=== PATIENT | male | born 1950 | race Caucasian/White ===

== ENCOUNTER → 2016-05-28 | Outpatient (CLI) | payer BC, OTHER ==
--- NOTE | 2016-05-28 09:55 | US ---
EXAM DESCRIPTION: Renal CLINICAL HISTORY: 66 years Male, COMPLEX LEFT RENAL CYST COMPARISON: September 12, 2012. TECHNIQUE: Grayscale imaging of bilateral kidneys was performed. FINDINGS: The right kidney measures 11.7 cm in diameter and the left measures 12.7. No evidence of solid mass. No evidence of renal stone or obstruction. There are two Bosniak 2F cyst seen within left kidney and a single right simple renal cyst noted. The two septated cysts within the left kidney have demonstrated interval increase in size. The largest measures 6 cm in diameter on today's exam and on the prior study and measured 5.2 cm in diameter. The exophytic left lower pole renal cyst seen on the prior study is no longer visualized on today's study. IMPRESSION: Bilateral renal cysts noted. The two within the left kidney are complex and compatible with Bosniak 2F cysts. These have demonstrated slight interval increase in size of the course of four years, on the order of a few millimeters. No evidence of renal stone or obstruction. Electronically signed by: Pete Hernandez MD 05/28/2016 9:54 AM [employer]
== END | disposition home or self-care (01) ==
LOC: US 08:18
PROVIDERS: ATTEND Urology
DX: N28.1 Cyst of kidney, acquired (principal)

== ENCOUNTER → 2016-06-09 | Outpatient (CLI) | payer BC | END | disposition home or self-care (01) | LOC: LAB.O 14:34 | PROVIDERS: ATTEND Urology | DX: R97.20 Elevated prostate specific antigen [PSA] (principal) ==

== ENCOUNTER → 2016-10-22 | Outpatient (CLI) | payer BC | END | disposition home or self-care (01) | LOC: GMA 10:12 | PROVIDERS: ATTEND Nurse Practitioner Family | DX: R53.81 Other malaise (principal) ==

== ENCOUNTER 2017-04-11 19:14 | Emergency (ER) | payer BC, MEDICARE ==
[2017-04-11] MEDS ORDERED: SODIUM CHLORIDE 0.9% 1000ML 1,000 ML IVS ONE (19:37)
[2017-04-11] MEDS ORDERED: IBUPROFEN 200 MG TAB PO ONE (19:38)
--- NOTE | 2017-04-11 20:09 | RAD ---
PROCEDURE: XR CHEST 1 VIEW HISTORY: confusion fever COMPARISON: TECHNIQUE: Single projection of the chest was done. 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 There are no discrete airspace infiltrates, pneumothoraces or pleural effusions. The pulmonary vascularity is normal. The cardiomediastinal silhouette is stable. IMPRESSION: There is no acute pleural-parenchymal process seen in the imaged lung ramey. Location of Interpretation: Teleradiology Electronically signed by: Lukas Lorenzo MD 04/11/2017 8:08 PM [facility] Workstation: [id number]
[2017-04-11] MEDS ORDERED: cefTRIAXone SODIUM 1 GM VIAL IM ONE (21:46)
[2017-04-11] MEDS ORDERED: ONDANSETRON ODT 8 MG TAB SL ONE (21:46)
[2017-04-11] MEDS ORDERED: CIPROFLOXACIN 500 MG TAB PO ONE (21:46)
[2017-04-11 21:48] VITALS: TEMP 101.1
[2017-04-11] MEDS ORDERED: ACETAMINOPHEN 325 MG TAB PO ONE (21:50)
--- NOTE | 2017-04-11 21:52 | ED.PDOC ---
History of Present Illness - General Chief Complaint: Fever Stated Complaint: N/V/D, Fever Time Seen by Provider: 04/11/17 19:26 Source: patient Exam Limitations: no limitations - History of Present Illness Initial Comments: the patient is 67-year-old male presenting to the emergency room secondary to 4-5 days of symptoms. Symptoms primarily started out with nausea vomiting and diarrhea which have been intermittent over that time. Today the patient has slept most of the day and was having a difficult time getting out his thoughts. He was not having slurring of speech. He was not having any were jumbled. No difficulty with moving his extremities. No syncope. He has felt shaky on his feet when getting up. He is not having any localized abdominal pain. There was no blood or bile in the vomitus. He has not had any bloody or melanotic stools. Family and he did not realize that he was having any fevers until he got here so he has not been getting any Motrin or Tylenol. By the time the patient arrived here he is speaking essentially normally. He knows where he has twice here and the date. He is able to give relative personal information to his . He is a good historian. No headache or nuchal rigidity. Timing/Duration: unsure Severity: moderate Improving Factors: nothing Worsening Factors: nothing Associated Symptoms: malaise, nausea/vomiting, weakness Allergies/Adverse Reactions: Allergies NO KNOWN ALLERGY Allergy (Verified 04/11/17 19:33) Home Medications: Ambulatory Orders Aspirin [Aspirin Low Strength] 2 tablet DAILY 04/11/17 Ciprofloxacin [Cipro] 500 mg PO BID #14 tab 04/11/17 Crestor 04/11/17 Metronidazole 500 mg PO TID #20 tab 04/11/17 Review of Systems - Review of Systems Constitutional: States: fever, malaise EENTM: States: no symptoms reported Respiratory: States: no symptoms reported Cardiology: States: no symptoms reported Gastrointestinal/Abdominal: States: diarrhea, nausea, vomiting Genitourinary: States: no symptoms reported Musculoskeletal: States: no symptoms reported Skin: States: no symptoms reported Neurological: States: see HPI Endocrine: States: no symptoms reported All other Systems: No Change from Baseline Past Medical History (General) - Patient Medical History Hx Seizures: No Hx Stroke: No Hx Dementia: No Hx Asthma: No Hx of COPD: No Hx Cardiac Disorders: Yes - open heart surgery 11 years ago Hx Congestive Heart Failure: No Hx Pacemaker: No Hx Hypertension: No Hx Thyroid Disease: No Hx Diabetes: No Hx Gastroesophageal Reflux: No Hx Renal Disease: No Hx Cancer: No Hx of HIV: No Hx Hepatitis C: No Hx MRSA: No Surgical History: other - Vaccination History Hx Tetanus, Diphtheria Vaccination: No Hx Influenza Vaccination: No Hx Pneumococcal Vaccination: No - Social History Hx Tobacco Use: Yes Hx Chewing Tobacco Use: Yes Hx Alcohol Use: No Hx Substance Use: No Hx Substance Use Treatment: No Hx Depression: No Family Medical History - Family History Mother Family History: No Known Physical Exam - Physical Exam General Appearance: Alert, Comfortable, No apparent distress Eye Exam: bilateral normal Ears, Nose, Throat: hearing grossly normal, normal ENT inspection, normal pharynx Neck: full range of motion, supple, other - no nuchal rigidity Respiratory: lungs clear, normal breath sounds, no respiratory distress, no accessory muscle use Cardiovascular/Chest: normal peripheral pulses, no edema, tachycardia - ormal sinus rhythm part of the time but does get tachycardic mildly intermittently Peripheral Pulses: radial,left: 2+, dorsalis pedis,right: 2+, dorsalis pedis, left: 2+ Gastrointestinal/Abdominal: normal bowel sounds, non tender, soft Rectal Exam: deferred Back Exam: normal inspection, no CVA tenderness, no vertebral tenderness Extremity: normal range of motion, non-tender, normal inspection, no pedal edema , normal capillary refill, other - 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 Neurologic: shift boss II-XII nml as tested, no motor/sensory deficits, alert, normal mood/affect, oriented x 3 Skin Exam: normal color Comments: Vital Signs - 24 hr 04/11/17 04/11/17 04/11/17 19:20 20:15 21:15 Temperature 101.7 F H 101.1 F H Pulse Rate [ 114 H 103 H 91 H monitor] Respiratory 20 23 20 Rate Blood Pressure 121/84 124/81 97/68 [Left Arm] O2 Sat by Pulse 96 97 Oximetry Progress - Progress Progress: 04/11/17 21:54 the patient is a 67-year-old male presenting to the emergency room after approximately 4 days of gastrointestinal symptoms followed by some very mild altered mental status today. The patient was significantly dehydrated and did receive a liter of IV fluids. He is also receiving Motrin and Tylenol help control the fever. He has tested negative for the flu. Blood work appears largely normal. Urinalysis appears normal except for dehydration. Chest x-ray appears reassuring. The patient needs to be kept well hydrated. He will be written for Zofran in case of any further nausea and vomiting. I would like him to take omeprazole [id number] twice daily for the next month to help reduce any gastritis symptoms which may be worsened by the antibiotics. The patient is going to be placed on ciprofloxacin and metronidazole for the next 7 days for the treatment of any bacterial gastroenteritis or diverticulitis that may be triggering the symptoms. He does need to take these medications with food and he does need to avoid his cholesterol medication with these medicines. He should follow-up with his primary care doctor within the next 2 days for reevaluation. He should return here to the emergency room for any acute worsening. Symptoms at this time do not appear to be consistent with stroke or meningitis. If symptoms however should change, then additional workup may be warranted. - Results/Orders Results/Orders: chest x-ray shows no evidence of any pneumonia. 04/11/17 19:42 BLOOD CULTURE Stat Laboratory Results - last 24 hr 04/11/17 04/11/17 04/11/17 19:40 19:42 19:42 WBC 9.6 RBC 5.59 Hgb 16.4 Hct 48.8 MCV 87.3 MCH 29.4 MCHC 33.6 RDW 13.8 Plt Count 238 MPV 8.7 Absolute Neuts (auto) 8.50 H Absolute Lymphs (auto) 0.50 L Absolute Monos (auto) 0.40 Absolute Eos (auto) 0.10 Absolute Basos (auto) 0.00 Neutrophils % 89.1 H Lymphocytes % 5.1 L Monocytes % 4.2 Eosinophils % 1.4 Basophils % 0.2 D-Dimer, Quantitative Sodium 136 Potassium 4.0 Chloride 107 Carbon Dioxide 20 L Anion Gap 13.0 BUN 23 H Creatinine 1.15 BUN/Creatinine Ratio 20.0 Random Glucose 128 H Serum Osmolality 277.3 Calcium 8.9 Magnesium 1.8 Total Bilirubin 1.4 H AST 17 ALT 14 Alkaline Phosphatase 46 Creatine Kinase 45 CK-MB (CK-2) 1.2 CK-MB (CK-2) % Not Reportable Troponin I < 0.02 B-Natriuretic Peptide 50.1 Serum Total Protein 6.9 Albumin 3.7 Globulin 3.2 Albumin/Globulin Ratio 1.2 Amylase 54 Lipase 19 L TSH 0.87 Urine Color Yellow Urine Appearance Clear Urine pH 5.5 Ur Specific [place] >= 1.030 Urine Protein Trace Urine Glucose (UA) Negative Urine Ketones Negative Urine Blood Negative Urine Nitrite Negative Urine Bilirubin Negative Urine Urobilinogen 0.2 Ur Leukocyte Esterase Negative Urine RBC 1-3 Urine WBC 0-1 Ur Epithelial Cells 0 Urine Bacteria 0 Urine Mucus Small 04/11/17 19:42 WBC RBC Hgb Hct MCV MCH MCHC RDW Plt Count MPV Absolute Neuts (auto) Absolute Lymphs (auto) Absolute Monos (auto) Absolute Eos (auto) Absolute Basos (auto) Neutrophils % Lymphocytes % Monocytes % Eosinophils % Basophils % D-Dimer, Quantitative 248 H* Sodium Potassium Chloride Carbon Dioxide Anion Gap BUN Creatinine BUN/Creatinine Ratio Random Glucose Serum Osmolality Calcium Magnesium Total Bilirubin AST ALT Alkaline Phosphatase Creatine Kinase CK-MB (CK-2) CK-MB (CK-2) % Troponin I B-Natriuretic Peptide Serum Total Protein Albumin Globulin Albumin/Globulin Ratio Amylase Lipase TSH Urine Color Urine Appearance Urine pH Ur Specific [place] Urine Protein Urine Glucose (UA) Urine Ketones Urine Blood Urine Nitrite Urine Bilirubin Urine Urobilinogen Ur Leukocyte Esterase Urine RBC Urine WBC Ur Epithelial Cells Urine Bacteria Urine Mucus apid flu test was negative. - EKG/XRAY/CT CT Ordered: No Departure - Departure Clinical Impression: Gastroenteritis, Dehydration Altered mental status Qualifiers: Altered mental status type: unspecified Qualified Code(s): R41.82 - Altered mental status, unspecified Disposition: Discharge to Home or Self Care Condition: Fair Departure Forms: ED Discharge - Pt. Copy, Patient Portal Self Enrollment Instructions: DI for Bacterial Gastroenteritis -- Adult Diet: bland diet Activity: increase activity as tolerated Referrals: Bryon Vidal MD [Primary Care Provider] - 1-2 Days Prescriptions: Ciprofloxacin [Cipro] 500 mg PO BID #14 tab Metronidazole 500 mg PO TID #20 tab Home Medications: Ambulatory Orders Aspirin [Aspirin Low Strength] 2 tablet DAILY 04/11/17 Ciprofloxacin [Cipro] 500 mg PO BID #14 tab 04/11/17 Crestor 04/11/17 Metronidazole 500 mg PO TID #20 tab 04/11/17 Additional Instructions: the patient is a 67-year-old male presenting to the emergency room after approximately 4 days of gastrointestinal symptoms followed by some very mild altered mental status today. The patient was significantly dehydrated and did receive a liter of IV fluids. He is also receiving Motrin and Tylenol help control the fever. He has tested negative for the flu. Blood work appears largely normal. Urinalysis appears normal except for dehydration. Chest x-ray appears reassuring. The patient needs to be kept well hydrated. He will be written for Zofran in case of any further nausea and vomiting. I would like him to take omeprazole [id number] twice daily for the next month to help reduce any gastritis symptoms which may be worsened by the antibiotics. The patient is going to be placed on ciprofloxacin and metronidazole for the next 7 days for the treatment of any bacterial gastroenteritis or diverticulitis that may be triggering the symptoms. He does need to take these medications with food and he does need to avoid his cholesterol medication with these medicines. He should follow-up with his primary care doctor within the next 2 days for reevaluation. He should return here to the emergency room for any acute worsening. Symptoms at this time do not appear to be consistent with stroke or meningitis. If symptoms however should change, then additional workup may be warranted.
[2017-04-11] MEDS ORDERED: LIDOCAINE 1% 10 ML VIAL INJ ONE (21:53)
[2017-04-11 22:28] VITALS: BP 104/72; O2SAT 98
== END 2017-04-11 22:30 | disposition home or self-care (01) ==
LOC: ER 19:14
DX: K52.9 Noninfective gastroenteritis and colitis, unspecified (principal); E86.0 Dehydration; R41.82 Altered mental status, unspecified
CPT/HCPCS: 36415; 71045; 80053; 81001; 82150; 82550; 82553; 83690; 83735; 83880; 84443; 84484; 85025; 85379; 87040; 87502; J0696; J7030

== ENCOUNTER 2018-04-10 05:12 | Day surgery (SDC) | payer BC, MEDICARE ==
[2018-04-10] MEDS ORDERED: PROPARACAINE 0.5% OPHTH SOL 15 ML BTTL ONE (08:41)
[2018-04-10] MEDS ORDERED: TROP 1%/CYCLOPEN 1%/PHENYL 2% DROPS ONE (08:42)
[2018-04-10] MEDS ORDERED: PROPARACAINE 0.5% OPHTH SOL 15 ML BTTL RIGHT_EYE ONE (10:55)
[2018-04-10] MEDS ORDERED: MIDAZOLAM INJ 2 MG/2 ML VIAL ONE (10:55)
[2018-04-10] MEDS ORDERED: TOBRAMYCIN SULF 0.3 % OPHT SOL 1 DROP RIGHT_EYE ONE ×2 (11:03→11:18)
[2018-04-10] MEDS ORDERED: LIDOCAINE 1% 2 ML VIAL INJ ONE (11:03)
[2018-04-10] MEDS ORDERED: DEXAMETHASONE 0.1% OPHTH SOL 1 DROP RIGHT_EYE ONE ×2 (11:03→11:18)
[2018-04-10] MEDS ORDERED: BRIMONIDINE 0.2% OPHTH DROPS RIGHT_EYE ONE ×2 (11:04→11:18)
== END 2018-04-10 12:15 | disposition home or self-care (01) ==
LOC: AMB 05:12
PROVIDERS: ATTEND Ophthalmology
DX: H25.11 Age-related nuclear cataract, right eye (principal); F17.220 Nicotine dependence, chewing tobacco, uncomplicated; Z79.82 Long term (current) use of aspirin; Z79.899 Other long term (current) drug therapy
CPT/HCPCS: 00142; 66984; J2250

== ENCOUNTER 2018-04-24 05:32 | Day surgery (SDC) | payer BC, MEDICARE ==
[2018-04-24] MEDS ORDERED: MOXIFLOXACIN HCL (OPHTH) 1 DROP DROPS ONE (08:19)
[2018-04-24] MEDS ORDERED: PROPARACAINE 0.5% OPHTH SOL 15 ML BTTL ONE (08:19)
[2018-04-24] MEDS ORDERED: TROP 1%/CYCLOPEN 1%/PHENYL 2% DROPS ONE (08:19)
[2018-04-24] MEDS ORDERED: MIDAZOLAM INJ 2 MG/2 ML VIAL ONE (08:28)
[2018-04-24] MEDS ORDERED: LIDOCAINE 1% MPF 5 ML VIAL INJ ONE (10:00)
[2018-04-24] MEDS ORDERED: TOBRAMYCIN SULF 0.3 % OPHT SOL 1 DROP LEFT_EYE ONE ×2 (10:00→10:14)
[2018-04-24] MEDS ORDERED: DEXAMETHASONE 0.1% OPHTH SOL 1 DROP LEFT_EYE ONE ×2 (10:00→10:14)
[2018-04-24] MEDS ORDERED: MOXIFLOXACIN HCL (OPHTH) 1 DROP DROPS LEFT_EYE ONE ×2 (10:00→10:14)
[2018-04-24] MEDS ORDERED: BRIMONIDINE 0.2% OPHTH DROPS LEFT_EYE ONE ×2 (10:01→10:14)
== END 2018-04-24 10:55 | disposition home or self-care (01) ==
LOC: AMB 05:32
PROVIDERS: ATTEND Ophthalmology
DX: H25.11 Age-related nuclear cataract, right eye (principal); I10 Essential (primary) hypertension
CPT/HCPCS: 00142; 66984; J2250

== ENCOUNTER → 2018-05-11 | Outpatient (CLI) | payer BC, MEDICARE | LOC: GMAM 10:17 | PROVIDERS: ATTEND Family Medicine | DX: Z12.5 Encounter for screening for malignant neoplasm of prostate (principal) ==

== ENCOUNTER → 2018-06-02 | Outpatient (CLI) | payer MEDICARE, BC ==
--- NOTE | 2018-06-02 15:17 | US ---
EXAM DESCRIPTION: Testicular: Ultrasound. CLINICAL HISTORY: 68 years Male SWELLING OF TESTICLE COMPARISON: None. TECHNIQUE: Transcutaneous scanning ; two-dimensional and Doppler modes. FINDINGS: Dimensions of the right testicle are 4.1 x 3.1 x 2.3 cm, with normal echogenicity and normal color Doppler flow. Epididymal head measures 9.0 x 8.7 x 6.3 mm, with 4 x 4 mm cyst. Otherwise normal echogenicity and normal color Doppler flow. Varicocele posterior to testicle present. No scrotal wall thickening. No Hydrocele. Dimensions of the left testicle are 4.5 x 3.1 x 2.3 cm, with normal echogenicity and normal color Doppler flow. Epididymal head measures 7 x 7 x 5 mm, with normal echogenicity and normal color Doppler flow. Varicocele posterior to the testicle, larger than on the right. No scrotal wall thickening. No Hydrocele. IMPRESSION: 1. Bilateral varicoceles larger on the left than right. No scrotal wall thickening or hydroceles. 2. 4 mm right epididymal cyst. Otherwise unremarkable. Negative findings bilateral testicles and left epididymis. Electronically signed by: Sohail Li MD 06/02/2018 3:13 PM MANAGEMENT DEPARTMENT CHAIR
== END ==
LOC: US 09:07
PROVIDERS: ATTEND Family Medicine
DX: I86.1 Scrotal varices (principal); N50.3 Cyst of epididymis

== ENCOUNTER 2018-12-12 17:53 | Emergency (ER) | payer BC, MEDICARE, OTHER ==
[2018-12-12 18:10] VITALS: TEMP 98.3
--- NOTE | 2018-12-12 18:26 | ED.PDOC ---
History of Present Illness - General Chief Complaint: Neuro Symptoms/Deficits Stated Complaint: confused, eyes not tracking Time Seen by Provider: 12/12/18 18:12 - History of Present Illness Initial Comments: 68 yo M PMH HL and byivonne x 6 presents to ED at bedside c/o episode of altered mental status while out in the heat today working for [email or web address]. Coworkers noticed slurring of words which has since resolved, and became concerned. Pt. alert cooperative and symptoms resolving, therefore TPA and stroke alert are not appropriate at this time. Denies fever chills nausea vomiting diarrhea chest pain sob admits sweating but was out in the heat/sun. No change in diet rest bowel or bladder. Remote h/o drinking and smoking as teenager but none currently admits FH DM denies FH HTN has PMD for follow up no other c/o today. Allergies/Adverse Reactions: Allergies NO KNOWN ALLERGY Allergy (Verified 04/11/17 19:33) Home Medications: Ambulatory Orders Aspirin [Aspirin Low Strength] 2 tablet PO DAILY 04/11/17 Rosuvastatin Calcium 20 mg PO MOWEFR 12/12/18 Review of Systems - Review of Systems Constitutional: States: weakness EENTM: States: no symptoms reported Respiratory: States: no symptoms reported Cardiology: States: no symptoms reported Gastrointestinal/Abdominal: States: no symptoms reported Genitourinary: States: no symptoms reported Musculoskeletal: States: no symptoms reported Neurological: States: see HPI, other - slurred speech resolved Endocrine: States: no symptoms reported All other Systems: Reviewed and Negative Past Medical History (General) - Patient Medical History Hx Seizures: No Hx Stroke: No Hx Dementia: No Hx Asthma: No Hx of COPD: No Hx Cardiac Disorders: Yes - open heart surgery 11 years ago Hx Congestive Heart Failure: No Hx Pacemaker: No Hx Hypertension: No Hx Thyroid Disease: No Hx Diabetes: No Hx Gastroesophageal Reflux: No Hx Renal Disease: No Hx Cancer: No Hx of HIV: No Hx Hepatitis C: No Hx MRSA: No Surgical History: other - Vaccination History Hx Tetanus, Diphtheria Vaccination: No Hx Influenza Vaccination: No Hx Pneumococcal Vaccination: No - Social History Hx Tobacco Use: Yes Hx Chewing Tobacco Use: Yes Hx Alcohol Use: No Hx Substance Use: No Hx Substance Use Treatment: No Hx Depression: No Family Medical History - Family History Mother Family History: No Known Physical Exam - Physical Exam General Appearance: No apparent distress Eye Exam: bilateral normal Ears, Nose, Throat: normal ENT inspection Neck: full range of motion, other - R below elbow amputation prothetic claw like grasping appendage in place, childhood injury Respiratory: normal breath sounds Cardiovascular/Chest: regular rate, rhythm Gastrointestinal/Abdominal: non tender, soft Extremity: normal range of motion Neurologic: no motor/sensory deficits, alert Skin Exam: normal color Progress - Progress Progress: 12/12/18 18:30 A/P-Altered Mental Status, Heat Exhaustion, Dehydration 1.ekg cxr telemetry pulse ox ct head cardiac panel ER CMP urinalysis fsglucose ib bolus reassess 12/12/18 20:42 Attending at bedside now brother in law and sister in law as well as at bedside report that pts mentation a nd sluirred speech have completely resolved. Participated in shared decision making offered observational admission for above conditions but pt declined and would like to go home and follow up with pcp Michaela Vidal here in [place]. Will d/c at this time. - Results/Orders Results/Orders: EKG-NSR 65bpm non specific TW changes No STEMI Incomplete RBBB TWI I,aVL no previous for comparison abnormal EKG Laboratory Tests 12/12/18 12/12/18 12/12/18 18:41 18:45 18:45 WBC 7.8 RBC 5.05 Hgb 14.9 Hct 45.0 MCV 89.2 MCH 29.5 MCHC 33.1 RDW 14.1 Plt Count 247 MPV 9.2 Absolute Neuts (auto) 5.40 Absolute Lymphs (auto) 1.60 Absolute Monos (auto) 0.50 Absolute Eos (auto) 0.30 Absolute Basos (auto) 0.10 Neutrophils % 69.0 Lymphocytes % 20.6 Monocytes % 5.8 Eosinophils % 3.5 Basophils % 1.1 PT 9.6 INR 0.96 PTT (SP) 23.3 Sodium 139 Potassium 4.1 Chloride 104 Carbon Dioxide 24 Anion Gap 15.1 BUN 18 Creatinine 1.14 BUN/Creatinine Ratio 15.8 POC Glucose 95 Random Glucose 97 Serum Osmolality 279.4 Lactic Acid 1.2 Calcium 9.2 Magnesium 2.2 Total Bilirubin 1.0 Direct Bilirubin 0.2 Indirect Bilirubin 0.8 AST 20 ALT 21 Alkaline Phosphatase 52 Creatine Kinase 101 CK-MB (CK-2) 2.5 CK-MB (CK-2) % Not Reportable Troponin I 0.02 Serum Total Protein 7.1 Albumin 4.1 Urine Color Urine Appearance Urine pH Ur Specific [place] Urine Protein Urine Glucose (UA) Urine Ketones Urine Blood Urine Nitrite Urine Bilirubin Urine Urobilinogen Ur Leukocyte Esterase Urine RBC Urine WBC Ur Epithelial Cells Calcium Oxalate Crystal Urine Bacteria Urine Mucus 12/12/18 19:20 WBC RBC Hgb Hct MCV MCH MCHC RDW Plt Count MPV Absolute Neuts (auto) Absolute Lymphs (auto) Absolute Monos (auto) Absolute Eos (auto) Absolute Basos (auto) Neutrophils % Lymphocytes % Monocytes % Eosinophils % Basophils % PT INR PTT (SP) Sodium Potassium Chloride Carbon Dioxide Anion Gap BUN Creatinine BUN/Creatinine Ratio POC Glucose Random Glucose Serum Osmolality Lactic Acid Calcium Magnesium Total Bilirubin Direct Bilirubin Indirect Bilirubin AST ALT Alkaline Phosphatase Creatine Kinase CK-MB (CK-2) CK-MB (CK-2) % Troponin I Serum Total Protein Albumin Urine Color Yellow Urine Appearance Clear Urine pH 5.5 Ur Specific [place] 1.025 Urine Protein Negative Urine Glucose (UA) Negative Urine Ketones Trace Urine Blood Trace-lysed H Urine Nitrite Negative Urine Bilirubin Negative Urine Urobilinogen 1.0 Ur Leukocyte Esterase Negative Urine RBC 0-1 Urine WBC 0-1 Ur Epithelial Cells 0 Calcium Oxalate Crystal 1+ Urine Bacteria Rare Urine Mucus Trace EXAM: XR Chest, 1 View CLINICAL HISTORY: Altered Mental Status TECHNIQUE: Frontal view of the chest. COMPARISON: 04/11/2017. FINDINGS: Limitations: None. Lungs: Unremarkable. No consolidation. Pleural space: Unremarkable. No pneumothorax. Heart: Prominent cardiac shadow unchanged. Mediastinum: Unremarkable. Bones/joints: Unremarkable. IMPRESSION: No acute findings. Electronically signed by: Taylor Gr MD 12/12/2018 6:55 PM CDT EXAM: CT Head Without Intravenous Contrast CLINICAL HISTORY: Altered Mental Status TECHNIQUE: Axial computed tomography images of the head/brain without intravenous contrast. Sagittal and coronal reformatted images were created and reviewed. This CT exam was performed using one or more of the following dose reduction techniques: automated exposure control, adjustment of the mA and/or kV according to patient size, and/or use of iterative reconstruction technique. COMPARISON: No relevant prior studies available. FINDINGS: Limitations: None. Brain: There is age related cortical atrophy and periventricular white matter hypodensity most consistent with chronic small ischemic change. No acute infarct, hemorrhage or mass. Ventricles: Unremarkable. No ventriculomegaly. Bones/joints: Unremarkable. No acute fracture. Soft tissues: Unremarkable. Vasculature: Dense atherosclerotic calcification of the vertebral and carotid arteries noted. Sinuses: Unremarkable as visualized. No acute sinusitis. Mastoid air cells: Unremarkable as visualized. No mastoid effusion. IMPRESSION: No acute findings. Electronically signed by: Taylor Gr MD 12/12/2018 6:59 PM CDT Departure - Departure Clinical Impression: Abnormal ECG, Dehydration after exertion Altered mental status Qualifiers: Altered mental status type: unspecified Qualified Code(s): R41.82 - Altered mental status, unspecified Heat exhaustion Qualifiers: Encounter type: initial encounter Qualified Code(s): T67.5XXA - Heat exhaustion, unspecified, initial encounter Time of Disposition: 20:46 Disposition: Discharge to Home or Self Care Condition: Fair Departure Forms: ED Discharge - Pt. Copy, Patient Portal Self Enrollment Instructions: Dehydration, Adult (DC), Heat Exhaustion and Heat Stroke (DC), Altered Mental Status (DC) Referrals: Bryon Vidal MD [Primary Care Provider] - 1-2 Days Home Medications: Ambulatory Orders Aspirin [Aspirin Low Strength] 2 tablet PO DAILY 04/11/17 Rosuvastatin Calcium 20 mg PO MOWEFR 12/12/18 Additional Instructions: Please follow up with Alarm Investigator for Abnormal EKG or confirm old EKG is Unchanged
--- NOTE | 2018-12-12 18:57 | RAD ---
EXAM: XR Chest, 1 View CLINICAL HISTORY: Altered Mental Status TECHNIQUE: Frontal view of the chest. COMPARISON: 04/11/2017. FINDINGS: Limitations: None. Lungs: Unremarkable. No consolidation. Pleural space: Unremarkable. No pneumothorax. Heart: Prominent cardiac shadow unchanged. Mediastinum: Unremarkable. Bones/joints: Unremarkable. IMPRESSION: No acute findings. Electronically signed by: Taylor Gr MD 12/12/2018 6:55 PM CDT
--- NOTE | 2018-12-12 19:00 | CT ---
EXAM: CT Head Without Intravenous Contrast CLINICAL HISTORY: Altered Mental Status TECHNIQUE: Axial computed tomography images of the head/brain without intravenous contrast. Sagittal and coronal reformatted images were created and reviewed. This CT exam was performed using one or more of the following dose reduction techniques: automated exposure control, adjustment of the mA and/or kV according to patient size, and/or use of iterative reconstruction technique. COMPARISON: No relevant prior studies available. FINDINGS: Limitations: None. Brain: There is age related cortical atrophy and periventricular white matter hypodensity most consistent with chronic small ischemic change. No acute infarct, hemorrhage or mass. Ventricles: Unremarkable. No ventriculomegaly. Bones/joints: Unremarkable. No acute fracture. Soft tissues: Unremarkable. Vasculature: Dense atherosclerotic calcification of the vertebral and carotid arteries noted. Sinuses: Unremarkable as visualized. No acute sinusitis. Mastoid air cells: Unremarkable as visualized. No mastoid effusion. IMPRESSION: No acute findings. Electronically signed by: Taylor Gr MD 12/12/2018 6:59 PM CDT
[2018-12-12 21:01] VITALS: BP 149/93; O2SAT 97
== END 2018-12-12 21:00 | disposition home or self-care (01) ==
LOC: ER 17:53
DX: T67.5XXA Heat exhaustion, unspecified, initial encounter (principal); R41.82 Altered mental status, unspecified; E86.0 Dehydration; R94.31 Abnormal electrocardiogram [ECG] [EKG]; I51.9 Heart disease, unspecified; Z87.891 Personal history of nicotine dependence; Z98.890 Other specified postprocedural states; Z79.82 Long term (current) use of aspirin; Z79.899 Other long term (current) drug therapy; Y99.0 Civilian activity done for income or pay; Y92.69 Other specified industrial and construction area as the place of occurrence of the external cause

== ENCOUNTER 2018-12-13 09:43 | Observation (INO) | payer BC, MEDICARE, OTHER ==
[2018-12-13] MEDS ORDERED: SODIUM CHLORIDE 0.9% (FLUSH) 10 ML SYG IV PRN ×2 (10:11→17:50)
--- NOTE | 2018-12-13 10:13 | ED.PDOC ---
History of Present Illness - General Chief Complaint: General Stated Complaint: Heat exhaustion sx's Time Seen by Provider: 12/13/18 09:48 Source: patient, RN notes reviewed, Vital Signs reviewed, family, old records - from his visit yesterday Exam Limitations: no limitations - History of Present Illness Initial Comments: Pt presents with c/o slurred speech and dizziness. Pt denies vertigo. Pt states symptoms are better than they were yesterday, but they have not gone away. Pt seen yesterday, w/u, offered admission and he refused. Pt denies cp/sob/vision problems/n/v/d. Timing/Duration: 24 hours Severity: moderate Improving Factors: nothing Worsening Factors: nothing Associated Symptoms: malaise, other - slurred speech and dizziness Allergies/Adverse Reactions: Allergies NO KNOWN ALLERGY Allergy (Verified 12/13/18 10:14) Home Medications: Ambulatory Orders Aspirin [Aspirin Low Strength] 2 tablet PO DAILY 04/11/17 Rosuvastatin Calcium 20 mg PO MOWEFR 12/12/18 Furosemide 20 mg PO DAILY 12/13/18 Icosapent Ethyl [Vascepa] 2 capsule PO BID 12/13/18 Potassium Chloride [Potassium Chloride ER] 10 mg PO DAILY 12/13/18 Review of Systems - Review of Systems Constitutional: States: malaise. Denies: weakness EENTM: States: no symptoms reported Respiratory: States: no symptoms reported Cardiology: States: no symptoms reported Gastrointestinal/Abdominal: States: no symptoms reported Genitourinary: States: no symptoms reported Musculoskeletal: States: no symptoms reported Skin: States: no symptoms reported Neurological: States: other - dizziness and slurred speech. Denies: numbness, paresthesia All other Systems: Reviewed and Negative Past Medical History (General) - Patient Medical History Hx Seizures: No Hx Stroke: No Hx Dementia: No Hx Asthma: No Hx of COPD: No Hx Cardiac Disorders: Yes - open heart surgery 11 years ago Hx Congestive Heart Failure: No Hx Pacemaker: No Hx Hypertension: No Hx Thyroid Disease: No Hx Diabetes: No Hx Gastroesophageal Reflux: No Hx Renal Disease: No Hx Cancer: No Hx of HIV: No Hx Hepatitis C: No Hx MRSA: No - Vaccination History Hx Tetanus, Diphtheria Vaccination: No Hx Influenza Vaccination: No Hx Pneumococcal Vaccination: No - Social History Hx Tobacco Use: Yes Hx Chewing Tobacco Use: Yes Hx Alcohol Use: No Hx Substance Use: No Hx Substance Use Treatment: No Hx Depression: No Family Medical History - Family History Mother Family History: No Known Living Status: Physical Exam - Physical Exam General Appearance: Alert, Anxious, Comfortable, Obese, Well Developed, Well Groomed, Well Hydrated, Well Nourished Eye Exam: bilateral normal, bilateral abnormal EOM Ears, Nose, Throat: hearing grossly normal, normal ENT inspection, normal pharynx Neck: non-tender, full range of motion, supple, normal inspection Respiratory: chest non-tender, lungs clear, normal breath sounds, no respiratory distress, no accessory muscle use Cardiovascular/Chest: normal peripheral pulses, regular rate, rhythm, no edema, no gallop, no murmur Gastrointestinal/Abdominal: normal bowel sounds, non tender, soft, no organomegaly Back Exam: no CVA tenderness, no vertebral tenderness Extremity: normal range of motion, non-tender, no calf tenderness, other - pt years s/p amputation of right arm. Pt with prosthesis in place. 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 Ryan Yousif who admitted the patient. 12/14/18 00:52 Pernell Plascencia M.D. #[id number] - Results/Orders Results/Orders: 12/13/18 10:11 IV Care:Saline Lock per Protoc QSHIFT Sodium Chloride 0.9% (Flush) [Saline Flush Syringe] 10 ml IV PRN PRN EKG Stat Pulse Ox Stat 12/13/18 10:20 B-TYPE NATRIURETIC PEPTIDE/BNP Stat CARDIAC PANEL,ER Stat Laboratory Results - last 24 hr 12/13/18 10:20 WBC 7.3 RBC 4.86 Hgb 14.3 Hct 43.4 MCV 89.2 MCH 29.5 MCHC 33.1 RDW 14.1 Plt Count 225 MPV 9.0 Absolute Neuts (auto) 5.10 Absolute Lymphs (auto) 1.40 Absolute Monos (auto) 0.50 Absolute Eos (auto) 0.30 Absolute Basos (auto) 0.10 Neutrophils % 69.4 Lymphocytes % 18.6 L Monocytes % 6.8 Eosinophils % 3.9 Basophils % 1.3 PT 9.3 INR 0.93 PTT (SP) 24.0 Sodium 140 Potassium 3.8 Chloride 107 Carbon Dioxide 22 Anion Gap 14.8 Calcium 9.3 CK-MB (CK-2) 1.9 Troponin I < 0.02 B-Natriuretic Peptide 21.7 - EKG/XRAY/CT Comments: NSR@61bpm, LAE, incomplete RBBB, t wave flattening lateral, abnormal ekg Departure - Departure Clinical Impression: Dehydration, Slurred speech CVA (cerebral vascular accident) Qualifiers: CVA mechanism: unspecified Qualified Code(s): I63.9 - Cerebral infarction, unspecified Time of Disposition: 11:00 - Accepted for admission by Howard Yousif Disposition: Admit Patient Condition: Fair Home Medications: Ambulatory Orders Aspirin [Aspirin Low Strength] 2 tablet PO DAILY 04/11/17 Rosuvastatin Calcium 20 mg PO MOWEFR 12/12/18 Furosemide 20 mg PO DAILY 12/13/18 Icosapent Ethyl [Vascepa] 2 capsule PO BID 12/13/18 Potassium Chloride [Potassium Chloride ER] 10 mg PO DAILY 12/13/18 Decision To Admit - Decistion To Admit Decision to Admit Reason: Admit from ER - Accepted for admission at 1100 hours
--- NOTE | 2018-12-13 10:54 | RAD ---
EXAM DESCRIPTION: Chest,1 View CLINICAL HISTORY: 68 years Male, slurred speech COMPARISON: Previous study December 12, 2018 TECHNIQUE: AP portable chest. FINDINGS: Heart size is large with normal pulmonary vascularity. Sternotomy wires are present. No consolidating infiltrate. No pulmonary mass or worrisome nodule. No pneumothorax or pleural effusion. Bones are unremarkable. IMPRESSION: Large heart without congestive failure. Electronically signed by: Clarence Escamilla MD 12/13/2018 10:52 AM CDT
[2018-12-13] MEDS ORDERED: SODIUM CHLORIDE 0.9% 1000ML 1,000 ML IVS ONE (11:33)
--- NOTE | 2018-12-13 14:27 | MRI ---
EXAM DESCRIPTION: Brain w/oContrast CLINICAL HISTORY: possible CVA COMPARISON: CT head December 12, 2018 TECHNIQUE: Multiplanar, multi sequence MR images of the head are obtained without IV gadolinium contrast using standard imaging protocol. FINDINGS: The midline structures are not displaced. Sulci are age appropriate. The lateral, third, and fourth ventricles are normal in size, shape, and anatomic positioning. Normal hopkins-white differentiation is seen. Normal flow voids are seen in the major intracranial vessels including the dural venous sinuses. There is no evidence of mass, mass effect, hydrocephalus, or acute intracranial hemorrhage. No abnormal extra-axial fluid collections are seen. 2 foci to the left of midline in the superior aspect of the adolph measuring 6 and 4 mm are seen on FLAIR and T2-weighted sequences with increased signal on diffusion-weighted versus. Mild to moderate scattered foci of increased FLAIR/T2 signal in the periventricular white matter and white matter of the centrum semiovale are seen without associated diffusion restriction. Gradient echo images show no abnormal signal. The pituitary is unremarkable. A 1.6 cm increased T1 signal probable complex mucous retention cyst in the floor the right maxillary sinus is seen. The visualized orbits and mastoid air cells are unremarkable. IMPRESSION: Small area of acute left pontine infarcts in the superior aspect of the adolph. Age-appropriate atrophy with moderate old small vessel ischemic type changes. Electronically signed by: Petros Morris MD 12/13/2018 2:26 PM CDT
--- NOTE | 2018-12-13 14:31 | HP ---
SUPERVISING PHYSICIAN: Bryon Vidal MD CHIEF COMPLAINT: Heat exhaustion. HISTORY OF PRESENT ILLNESS: Mr. Bucio is a 68-year-old male patient who presented to the Emergency Room earlier on 12/13/18 with complaints of slurred speech and dizziness. He denied any actual vertigo. He noted he had had similar symptoms the previous day starting around 10 o'clock that previous day and was seen in the Emergency Room, but actually refused admission and noted that his symptoms persisted and seemed to be a little bit better, but had not gone away. That was the last time he was reported as normal. On the day of initial onset he did not present to the Emergency Room until around 6:30, approximately 8 hours after his symptom onset. He denied that he had any additional worsening transiently and, again, the symptoms have progressively stabilized if not gotten better. His insisted that he go to the Emergency Room for evaluation. Given his past exam, it was felt that he probably had a CVA type event. The Emergency Room physician requested the patient be placed in observation for further workup including MRI, carotids, echocardiogram and further rule out of acute cerebrovascular accident. He was admitted in stable condition. PAST MEDICAL HISTORY: 1. Coronary artery disease. 2. Hyperlipidemia. 3. Nephrolithiasis. 4. History of renal cysts. PAST SURGICAL HISTORY: 1. Coronary artery bypass graft, 6 vessels in 2006. 2. Hernia repair. 3. 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 HOME MEDICATIONS: 1. Rosuvastatin 20 mg Guheml-Mqemxqaze-Ocfmon. 2. Potassium chloride 10 mEq daily. 3. Vascepa 2 capsules b.i.d. 4. Lasix 20 mg daily. 5. Aspirin 81 mg 2 tablets daily. ALLERGIES: NO KNOWN DRUG ALLERGIES. FAMILY HISTORY: Father at age 84 due cardiac disease and thyroid problems. Mother at age 78 with pulmonary embolism. He has one sister who is due to breast cancer. He has one daughter who is healthy. He has six other siblings with diabetes and issues with nephrolithiasis. SOCIAL HISTORY: The patient is employed by [employer]. He is . He lives in [place], [place]. He has never smoked, but utilizes smokeless tobacco. He denies any alcohol or illicit drugs. REVIEW OF SYSTEMS: CONSTITUTIONAL: Negative for any fevers, general malaise or unintentional weight loss. HEENT: Negative for headaches, sore throats, earaches, nasal congestion, vision changes. RESPIRATORY: Denies coughing, wheezing, shortness of breath. CARDIOVASCULAR: Negative for chest pain, palpitations or syncopal episodes. GASTROINTESTINAL: Negative for nausea, vomiting, diarrhea, constipation or abdominal pain. GENITOURINARY: Negative for dysuria, hematuria, polyuria. MUSCULOSKELETAL: Denies arthralgias, joint swelling. SKIN: No unexplained lesions, rashes or moles. NEUROLOGIC: Positive for dizziness and slurred speech. Denies any numbness or paresthesias. PHYSICAL EXAMINATION: VITAL SIGNS: Temperature 98.2. Pulse 65. Blood pressure 148/91. Respirations 18. Saturation 96% on room air. Admission weight 97.0 kg. GENERAL: The patient appears to be in no acute distress. He is a little anxious. He is alert. HEENT: Tympanic membranes clear bilaterally. Oropharynx is pink, moist without any lesions. NECK: Supple, nontender with full range of motion. No jugular venous distention noted. RESPIRATORY: Lungs clear to auscultation bilaterally without any rhonchi, wheezes or rales. CARDIOVASCULAR: Regular rate and rhythm without any appreciable murmurs, gallops, or rubs. ABDOMEN: Soft, nontender. Positive bowel sounds. BACK: No significant CVA tenderness or vertebral tenderness. EXTREMITIES: Prosthesis in place on his right arm due amputation below the elbow at age 16. There is no cyanosis, clubbing or edema. NEUROLOGIC: Cranial nerves II-XII are grossly intact. Facial features are symmetrical. Extraocular movements are within normal limits. There is no nystagmus noted. No motor professional fighter is noted. He does have some ataxia to lower extremities and is notably deficient in his gait and coordination. Speech is barely notable slurred speech, but according to the , it is slurred, but better than yesterday. He is alert and oriented x3. SKIN: Warm, pink and dry. LYMPHATICS: No adenopathies are noted. LABORATORY: White count 7,300, hemoglobin 14.3, hematocrit 43.4, platelet count 225,000, differential without a left shift. Coagulation studies showed normal PT and PTT. Chemistries showed normal electrolytes. BUN slightly elevated at 20, creatinine normal at 1.03. Liver functions all within normal limits. Troponin less than 0.02. BNP 21. Urinalysis pending. TSH pending. Magnesium pending. Lipid panel pending. RADIOLOGY: Brain MRI without contrast per radiologic interpretation shows moderate acute left pontine infarcts in the superior aspect of the pods, age appropriate atrophy, moderate old small vessel ischemic changes. Carotid Doppler ultrasound per radiologic interpretation showed no hemodynamically significant stenosis. Echocardiogram pending. EKG showed normal sinus rhythm with incomplete bundle branch block, unchanged compared to previous EKGs done 05/12/18. ASSESSMENT: 1. Acute ischemic small vessel infarct, cerebrovascular accident of the left adolph with minimally slurred speech, mild ataxia and dizziness with onset of symptoms well over 12 hours prior to initial presentation to the Emergency Room at time of admission. 2. Mild dehydration with moderately elevated BUN. 3. History of hyperlipidemia. 4. History of coronary artery disease with previous 6 vessel coronary artery bypass graft. 5. 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 6. Chronic nicotine addiction in the form of smokeless tobacco. PLAN: We will continue workup in regards to his CVA and stroke workup. I did consult with neurology at [facility] regarding his findings on MRI and they recommend medical management with Plavix, aspirin, statins and blood pressure management. He is a little hypertensive. We will allow permissive hypertension as long as it does not get above systolic of 190 and diastolic of 100. I did discuss that he was not a candidate for any interventional therapy given he was well out of the window for TPA, but he would benefit from rehabilitation program at [facility]. They have agreed to that plan and I will discuss referral to Nicole at [facility]. We will anticipate his length of stay to be one to two days. We will resume his home medications as appropriate to his care. He will be on Lovenox per protocol. I have given him Plavix loading dose of 300 mg. We will start him on 75 mg daily along with his aspirin. He will need to followup with his primary care provider, Dr. Vidal, as well as cardiology, Dr. Sanders. He will also need to be consulted to neurology which can be handled through Dr. Vidal's office. Until the patient can transition to rehab, we will continue to monitor and treat as needed. #[id number] [facility]
--- NOTE | 2018-12-13 16:19 | US ---
EXAM DESCRIPTION: Carotid Duplex CLINICAL HISTORY: possible CVA COMPARISON: None Available. TECHNIQUE: Carotid Doppler ultrasound FINDINGS: Right Submitted images show mild calcified plaque in the right carotid bulb and proximal ICA. The following flow velocities were obtained: Common carotid artery peak systolic flow velocity measures 72 centimeters per second. Internal carotid artery peak systolic flow velocity measures 47-50 centimeters per second. External carotid artery peak systolic flow velocity measures 73 centimeters per second. Flow in the right vertebral artery is antegrade. The right internal carotid to common carotid peak systolic flow velocity ratio equals 0.7 which is normal. Left Submitted images show moderate calcified plaque of the left carotid bulb. Transverse image shows 57% area stenosis of the left carotid bulb. The following flow velocities were obtained: Common carotid artery peak systolic flow velocity measures 89 centimeters per second. Internal carotid artery peak systolic flow velocity measures 29-50 centimeters per second. External carotid artery peak systolic flow velocity measures 89 centimeters per second. Flow in the left vertebral artery is antegrade. The left internal carotid to common carotid peak systolic flow velocity ratio of 0.6 is normal. IMPRESSION: No hemodynamically significant stenosis. Electronically signed by: Clarence Escamilla MD 12/13/2018 4:17 PM CDT
[2018-12-13] MEDS ORDERED: ACETAMINOPHEN 325 MG TAB PO PRN (17:50)
[2018-12-13] MEDS ORDERED: ONDANSETRON INJ 4 MG/2 ML VIAL IV PRN (17:50)
[2018-12-13] MEDS ORDERED: MAGNESIUM HYDROXIDE 30 ML UD PO PRN (17:50)
[2018-12-13] MEDS ORDERED: IV SET AND CAP CHANGE INJ INJ SCH (18:00)
[2018-12-13] MEDS ORDERED: NON-FORMULARY MEDICATION 1 EA MIS (Rosuvastatin Calcium [Rosuvastatin Calcium] 20 MG) PO SCH (18:00)
[2018-12-13] MEDS ORDERED: CLOPIDOGREL 75 MG TAB PO ONE (19:39)
[2018-12-13] MEDS ORDERED: ENOXAPARIN SODIUM 40 MG/0.4 ML SYG SUBCU SCH (21:00)
[2018-12-13] MEDS: ICOSAPENT ETHYL PO SCH (21:06)
[2018-12-14] MEDS ORDERED: OMEPRAZOLE CAP 20 MG CAP PO SCH (06:30)
[2018-12-14] MEDS ORDERED: FUROSEMIDE 40 MG TAB ONE (07:38)
[2018-12-14] MEDS ORDERED: CLOPIDOGREL 75 MG TAB PO SCH (09:00)
[2018-12-14] MEDS ORDERED: FUROSEMIDE 40 MG TAB PO SCH (09:00)
[2018-12-14] MEDS ORDERED: POTASSIUM CHLORIDE 10 MEQ TAB PO SCH (09:00)
[2018-12-14] MEDS ORDERED: ASPIRIN (CHEWABLE) 81 MG TAB PO SCH (09:00)
[2018-12-14] MEDS: ICOSAPENT ETHYL PO SCH (10:15)
[2018-12-14 10:36] VITALS: BP 156/88; TEMP 98
[2018-12-14 12:50] VITALS: O2SAT 96
[2018-12-15] MEDS ORDERED: PANTOPRAZOLE SODIUM TAB 40 MG PO SCH (06:30)
[2018-12-15] MEDS ORDERED: ATORVASTATIN 20 MG TAB PO SCH (21:00)
--- NOTE | 2018-12-27 15:30 | DS ---
SUPERVISING PHYSICIAN: Bryon Vidal MD ADMISSION DIAGNOSIS: 1. Acute ischemic small vessel infarct, cerebrovascular accident of the left adolph with minimally slurred speech, mild ataxia and dizziness with onset of symptoms well over 12 hours prior to initial presentation to the Emergency Room at time of admission. 2. Mild dehydration with moderately elevated BUN. 3. History of hyperlipidemia. 4. History of coronary artery disease with previous 6 vessel coronary artery bypass graft. 5. 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 6. Chronic nicotine addiction in the form of smokeless tobacco. DISCHARGE DIAGNOSIS: 1. Acute ischemic small vessel infarct, cerebrovascular accident of the left adolph with minimally slurred speech, mild ataxia and dizziness with onset of symptoms well over 12 hours prior to initial presentation to the Emergency Room at time of admission. 2. Mild dehydration with moderately elevated BUN with BUN returning to baseline with fluids. 3. History of hyperlipidemia. 4. History of coronary artery disease with previous 6 vessel coronary artery bypass graft. 5. 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 6. Chronic nicotine addiction in the form of smokeless tobacco. REASON FOR HOSPITALIZATION: Mr. Bucio is a 68-year-old male patient who presented to the Emergency Room earlier on 12/13/18 with complaints of slurred speech and dizziness. He denied any actual vertigo. He noted he had had similar symptoms the previous day starting around 10 o'clock that previous day and was seen in the Emergency Room, but actually refused admission and noted that his symptoms persisted and seemed to be a little bit better, but had not gone away. That was the last time he was reported as normal. On the day of initial onset he did not present to the Emergency Room until around 6:30, approximately 8 hours after his symptom onset. He denied that he had any additional worsening transiently and, again, the symptoms have progressively stabilized if not gotten better. His insisted that he go to the Emergency Room for evaluation. Given his past exam, it was felt that he probably had a CVA type event. The Emergency Room physician requested the patient be placed in observation for further workup including MRI, carotids, echocardiogram and further rule out of acute cerebrovascular accident. He was admitted in stable condition. LABORATORY: CBC showed white count 7,300, hemoglobin 14.3, hematocrit 43.4, platelet count 225,000, differential without a left shift. Coagulation studies showed normal PT and PTT. Chemistries on admission showed normal electrolytes, just BUN slightly elevated at 20. Hemoglobin A1c was 5.8, magnesium 2.1, calcium 9.3, troponin less than 0.02. BNP normal 21. Cholesterol was elevated at 225 with triglycerides 156. LDL 161. Urinalysis within normal limits. RADIOLOGY: Chest x-ray per radiologic interpretation showed a large heart without congestive failure. This was followed up with an echocardiogram and per Dr. Jones, systolic ejection fraction was noted at 55% to 60% with grade 1 diastolic dysfunction. Brain MRI was done, please see that report for full details for acute findings of small area of acute left pontine infarcts in the superior aspect of the adolph. Carotid artery study and per radiologic interpretation showed no hemodynamically significant stenosis. EKG on admission showed normal sinus rhythm with incomplete right bundle branch block, no comparison available. HOSPITAL COURSE: Mr. Bucio was admitted for acute stroke and dehydration. He was started on fluids. He had a significant workup which did reveal a pontine stroke. He had minimal symptoms on admission to the Medical/Surgical Floor. He had a little noted change in his gait with some slurring of speech, but prior to discharge, this had all resolved except for the speech. Initially, the plan was to send him to [facility]. However, the patient opted to go to the [facility] which provides services for speech therapy in [place]. It was felt the patient was clinically stable. He was started on aspirin and Plavix. He was already on a statin and blood pressure was already being treated. He was without any acute findings. The patient was started on an aspirin and initiation of Plavix with a loading dose of 300 mg and continued at 75 mg per day. DISCHARGE PHYSICAL EXAMINATION: VITAL SIGNS: Temperature 98. Pulse 55. Blood pressure 156/88. Respirations 18. Saturation 95% on room air. GENERAL: The patient was ambulating without any complications. He was cleared by Physical Therapy. He was alert, in no acute distress. CHEST: Clear to auscultation. HEART: Regular rate and rhythm. ABDOMEN: Soft, nontender, positive bowel sounds. EXTREMITIES: No edema. Again noted the amputation to right arm with prosthesis in place. NEUROLOGIC: Alert and oriented times 3 with no reported dizziness. He had no notable nystagmus. He had no obvious ataxia, any motor drifts. Facial features were equal. His speech was slightly slurred per his , but had improved since admission. PLAN: Mr. Bucio was discharged to followup with Dr. Vidal in 7 days as well as neurology. This can be arranged through Dr. Vidal's office. He was to attend [facility] for speech therapy. He was told to resume home medications as directed including new medication of Plavix. He was told to return to the hospital or call 911 should he have any worsening or concerning symptoms. MEDICATIONS AT DISCHARGE: 1. New prescription for Plavix 75 mg, #30, no refills, to be continued through Dr. Vidal's office. All other medications prior to hospitalization were continued which include: 1. Rosuvastatin. 2. Potassium chloride. 3. Vascepa. 4. Lasix. 5. Aspirin. DISPOSITION: The patient was discharged to care of family members. CONDITION ON DISCHARGE: Improved and stable. #[id number] [facility]
== END 2018-12-14 13:35 | disposition home or self-care (01) ==
LOC: ER 09:43 → MS 14:29
PROVIDERS: ADMIT Nurse Practitioner Family; ATTEND Nurse Practitioner Family
DX: I63.9 Cerebral infarction, unspecified (principal); E86.0 Dehydration; E87.5 Hyperkalemia; I25.10 Atherosclerotic heart disease of native coronary artery without angina pectoris; F17.220 Nicotine dependence, chewing tobacco, uncomplicated; I45.10 Unspecified right bundle-branch block; I34.0 Nonrheumatic mitral (valve) insufficiency; I36.1 Nonrheumatic tricuspid (valve) insufficiency; Z79.82 Long term (current) use of aspirin; Z79.899 Other long term (current) drug therapy; Z95.1 Presence of aortocoronary bypass graft; Z89.211 Acquired absence of right upper limb below elbow; Z87.442 Personal history of urinary calculi
CPT/HCPCS: 96372; J1650; 83036; 80061; 36415 ×2; 82550; 80048; 82553; 85025; 85730; 85610; 84484; 81001; 83735; 84443; 83880; 71045; 93880; 94760 ×2; 97116; G8978; G8979; 97162; 99285; 93306; 70551; 93005; G0378

== ENCOUNTER → 2019-02-21 | Outpatient (CLI) | payer BC, MEDICARE ==
--- NOTE | 2019-02-22 14:22 | MRI ---
EXAM DESCRIPTION: MRA Head and/or Neck CLINICAL HISTORY: CEREBRAL INFARCT COMPARISON: MRI brain 13 December 2018. TECHNIQUE: 3D [id number] thin-section axial acquisitions through the base of the skull and the [place]. Non contrast. MIP reconstructions. FINDINGS: Bilateral ICAs with no significant luminal narrowing in the petrous segments, cavernous segments, clinoid segments, or intracranial. Bilateral bifurcation to form the MCA and JAMAL segments. A1 segments symmetric bilaterally. Proximal JAMAL and MCA and proximal branches negative findings. Possible small bilateral communicating arteries to the posterior circulation. Distal vertebral arteries visualized along with the PICA vessel on the left. Vertebrals are symmetric. Normal caliber. Normal caliber of the basilar artery slightly ectatic. Bilateral AICA vessels visible and bilateral superior cerebellar arteries visible slightly larger. Basilar artery bypass for dates deform the main supply of the posterior cerebral arteries bilaterally. Symmetric caliber of vessels and branches. No abnormal vascularity in the adolph. Abnormal low-density in the adolph to the left of midline. Just above the superior cerebellar peduncles. No significant narrowing, no aneurysm, no mass effect, and no vasculitis bilaterally. IMPRESSION: Unremarkable anterior posterior circulation on noncontrast MRA, physiologic appearance of the vessels for patient's age. No vascular narrowing, no aneurysm, no mass effect, and no vasculitis bilaterally. No abnormal vascularity in the adolph. Old infarction or atrophy in the adolph just to the left of midline. Electronically signed by: Sohail Li MD 02/22/2019 2:20 PM [facility]
== END ==
LOC: MRI 09:24
PROVIDERS: ATTEND Psychiatry & Neurology Neurology
DX: I63.9 Cerebral infarction, unspecified (principal); I25.10 Atherosclerotic heart disease of native coronary artery without angina pectoris

== ENCOUNTER → 2019-06-08 | Outpatient (CLI) | payer BC | DX: Z12.5 Encounter for screening for malignant neoplasm of prostate (principal) ==

== ENCOUNTER → 2020-05-22 | Outpatient (CLI) | payer BC | LOC: GMAM 12:43 | PROVIDERS: ATTEND Family Medicine | DX: Z00.00 Encounter for general adult medical examination without abnormal findings (principal) ==